=== PATIENT | male | born 1965 | race Caucasian/White ===

== ENCOUNTER 2025-02-22 09:49 | Emergency (ER) | payer SELFPAY ==
[~2025-02-22] VITALS: Ht 167.6 cm; Wt 87.0 kg
[2025-02-22 09:55] VITALS: TEMP 37; O2SAT 98
[2025-02-22 10:34] LABS: BASOPHILS % 0.4 % (0.0-2.0); EOSINOPHILS % 0.2 % (0.0-5.0); HEMATOCRIT. 45.2 % (42.0-52.0); HEMOGLOBIN. 15.2 g/dL (14.0-18.0); LYMPHOCYTES % 8.8 % (20.0-50.0); MEAN PLATELET VOLUME 10.4 fl (7.4-10.4); MONOCYTES % 6.7 % (2.0-8.0); NEUTROPHILS % 83.9 % (40.0-76.0); PLATELET 198 x1000/uL (130-400); RED BLOOD CELL COUNT 5.17 mill/uL (4.7-6.1); RED CELL DISTRIBUTION WIDTH 13.3 % (11.6-14.6)
[2025-02-22 10:50] LABS: CREATININE 1.1 mg/dL (0.6-1.3); UREA NITROGEN BLOOD 9 mg/dL (9-23)
[2025-02-22 12:38] LABS: CLARITY URINE CLEAR (CLEAR); COLOR URINE YELLOW (YELLOW); GLUCOSE URINE NEGATIVE (NEGATIVE); KETONES URINE NEGATIVE (NEGATIVE); LEUKOCYTE ESTERASE URINE NEGATIVE (NEGATIVE); NITRITE URINE NEGATIVE (NEGATIVE); OCCULT BLOOD URINE TRACE (NEGATIVE); PH URINE 5.5 (4.5-8.0); PROTEIN URINE TRACE (NEGATIVE); SPECIFIC GRAVITY URINE 1.008 (1.005-1.030); UROBILINOGEN URINE 0.2 E.U./dL (0.2-1.0)
[2025-02-22 13:08] LABS: SQUAMOUS EPITHELIAL CELL URINE NONE SEEN /lpf (RARE/1+); WBC URINE 0-2 /hpf (0-2)
[2025-02-22 13:09] LABS: BACTERIA URINE TRACE
[2025-02-22 17:20] LABS: CREATININE 0.9 mg/dL (0.6-1.3); UREA NITROGEN BLOOD 10 mg/dL (9-23)
[2025-02-22] MEDS ORDERED: TAMS-54 MT (17:25)
[2025-02-22 18:42] VITALS: BP 146/88; PULSE 82; RESP 18; O2SAT 100
== END 2025-02-22 18:43 | disposition home or self-care (01) ==
LOC: ER 09:49
DX: R33.8 Other retention of urine (principal)
CPT/HCPCS: 36415; 51702; 80048; 81003; 85025; 99284